=== PATIENT | female | born 1980 | race Caucasian/White ===

== ENCOUNTER 2020-10-03 20:37 | Emergency (ER) | payer OTHER ==
[2020-10-03 21:22] LABS: HEMOGLOBIN 13.2 gm/dl (12.3-15.3); RED BLOOD COUNT 4.82 M/UL (4.00-5.10); WHITE BLOOD COUNT 10.7 K/UL (4.5-11.0)
[2020-10-03 21:37] LABS: BUN/CREATININE RATIO 11 (0-10)
[2020-10-03] MEDS ORDERED: TORADOL 10 MG T10 MG PO (22:47)
[2020-10-03] MEDS ORDERED: ZOFRAN4 MG PO (22:59)
== END 2020-10-03 23:15 | disposition home or self-care (01) ==
LOC: ER1 20:37
PROVIDERS: Internal Medicine
DX: N13.2 Hydronephrosis with renal and ureteral calculous obstruction (principal); Z87.442 Personal history of urinary calculi; Z90.49 Acquired absence of other specified parts of digestive tract; Z88.5 Allergy status to narcotic agent
CPT/HCPCS: 80053; 81001; 85025; 96374; 96375; 99284; J1885; J2405; J7120

== ENCOUNTER 2022-02-20 10:53 | Emergency (ER) | payer OTHER ==
[~2022-02-20 10:53] MED LIST: TORADOL 10 MG T10 MG PO; ZOFRAN4 MG PO
[2022-02-20 12:42] LABS: HEMOGLOBIN 12.7 gm/dl (12.3-15.3); RED BLOOD COUNT 4.94 M/UL (4.00-5.10); WHITE BLOOD COUNT 7.8 K/UL (4.5-11.0)
[2022-02-20 13:07] LABS: BUN/CREATININE RATIO 14 (0-10)
== END 2022-02-20 15:00 | disposition home or self-care (01) ==
LOC: ER1 10:53
PROVIDERS: Emergency Medicine
DX: D69.6 Thrombocytopenia, unspecified (principal); Z20.822 Contact with and (suspected) exposure to COVID-19; Z86.39 Personal history of other endocrine, nutritional and metabolic disease
CPT/HCPCS: 71045; 80053; 82550; 82553; 84484; 85025; 93005; 99284; U0002